=== PATIENT | male | born 1935 | race Caucasian/White ===

== ENCOUNTER 2017-07-18 20:26 | Observation (INO) | payer MEDICARE ==
[~2017-07-18] VITALS: Ht 172.7 cm; Wt 96.3 kg
[2017-07-18 23:04] LABS: BASOPHILS % 0.9 % (0.0-2.0); EOSINOPHILS % 11.9 % (0.0-5.0); HEMATOCRIT. 36.8 % (42.0-52.0); HEMOGLOBIN. 12.4 g/dL (14.0-18.0); LYMPHOCYTES % 30.4 % (20.0-50.0); MEAN CORPUSCULAR HEMOGLOBIN 30.9 pg (28.0-32.0); MEAN CORPUSCULAR VOLUME 91.7 fL (80.0-94.0); MEAN PLATELET VOLUME 9.7 fl (7.4-10.4); MONOCYTES % 9.5 % (2.0-8.0); NEUTROPHILS % 47.3 % (40.0-76.0); PLATELET 165 x1000/uL (130-400); RED BLOOD CELL COUNT 4.01 mill/uL (4.7-6.1); RED CELL DISTRIBUTION WIDTH 14.7 % (11.6-14.6)
[2017-07-18 23:08] LABS: CARBON DIOXIDE 21 mEq/L (21-32); CHLORIDE 111 mEq/L (98-107); PROTHROMBIN TIME 10.5 sec (9.4-11.6)
[2017-07-18] MEDS ORDERED: LORAZEPAM 2MG/ML CPJ IV ONE (23:15)
[2017-07-18 23:16] LABS: TROPONIN I 0.13 ng/mL (0.00-0.04)
[2017-07-19] MEDS ORDERED: ENOXAPARIN 100MG/ML SYR SUBCUT SCH ×2 (02:15→13:00)
[2017-07-19] MEDS ORDERED: ENOXAPARIN 30MG/0.3ML SYR SUBCUT SCH (02:24)
[2017-07-19] MEDS ORDERED: ACETAMINOPHEN 325MG TABLET PO PRN (03:00)
[2017-07-19] MEDS ORDERED: ASPIRIN 325MG EC TABLET PO SCH (03:00)
[2017-07-19 04:40] VITALS: BP 126/63
[2017-07-19 05:21] VITALS: BP 126/63
[2017-07-19] MEDS ORDERED: ATEN50TA PO (05:44)
[2017-07-19] MEDS ORDERED: SIMV80TA2 PO (05:56)
[2017-07-19] MEDS ORDERED: FINA5TAB11 PO (05:56)
[2017-07-19] MEDS ORDERED: OMEP20TA2 PO (05:56)
[2017-07-19] MEDS ORDERED: METF500T4 PO (05:56)
[2017-07-19] MEDS ORDERED: GEMF600T3 PO (05:56)
[2017-07-19] MEDS ORDERED: ALENDRONATE PO (05:56)
[2017-07-19] MEDS ORDERED: OMEG1CAP17 PO (05:56)
[2017-07-19] MEDS ORDERED: MVI PO (05:56)
[2017-07-19] MEDS ORDERED: OMEP20CA10 PO (05:56)
[2017-07-19] MEDS ORDERED: SODIUM CHLORIDE 0.9% INJ 3ML FLUSH IVF SCH (06:00)
[2017-07-19] MEDS ORDERED: CARVEDILOL 3.125 MG TABLET PO SCH (06:00)
[2017-07-19 06:49] LABS: HEMATOCRIT. 35.9 % (42.0-52.0); HEMOGLOBIN. 11.8 g/dL (14.0-18.0); MEAN CORPUSCULAR HEMOGLOBIN 30.4 pg (28.0-32.0); MEAN CORPUSCULAR VOLUME 92.3 fL (80.0-94.0); MEAN PLATELET VOLUME 9.5 fl (7.4-10.4); PLATELET 160 x1000/uL (130-400); RED BLOOD CELL COUNT 3.89 mill/uL (4.7-6.1); RED CELL DISTRIBUTION WIDTH 14.6 % (11.6-14.6)
[2017-07-19 07:16] LABS: CREATINE KINASE MB FRACTION 3.2 ng/mL (0.5-3.6); TROPONIN I 0.28 ng/mL (0.00-0.04)
[2017-07-19 08:39] VITALS: BP 124/79
[2017-07-19] MEDS ORDERED: FAMOTIDINE 20MG TABLET PO SCH (09:00)
[2017-07-19 12:30] VITALS: BP 143/77
[2017-07-19] MEDS ORDERED: PNEUMOCOCCAL 23-VAL P-SAC VAC 0.5 ML IM ONE (13:00)
[2017-07-19 13:24] LABS: PLATELET ESTIMATE NORMAL
[2017-07-19] MEDS ORDERED: ATORVASTATIN CALCIUM 40MG TABLET PO SCH (21:00)
== END 2017-07-19 14:35 | disposition short-term general hospital (02) ==
LOC: ER 21:14 → INTOOBSV 07-19 02:56 → 5WST 07-19 02:56 → EDBEDREQ 07-19 03:01 → ENRESERV 07-19 03:25
PROVIDERS: ADMIT Ophthalmology; ATTEND Ophthalmology
DX: I21.4 Non-ST elevation (NSTEMI) myocardial infarction (principal); I25.110 Atherosclerotic heart disease of native coronary artery with unstable angina pectoris; I25.2 Old myocardial infarction; I10 Essential (primary) hypertension; E78.5 Hyperlipidemia, unspecified; E11.9 Type 2 diabetes mellitus without complications; N40.0 Benign prostatic hyperplasia without lower urinary tract symptoms; M81.0 Age-related osteoporosis without current pathological fracture; R79.89 Other specified abnormal findings of blood chemistry; J90 Pleural effusion, not elsewhere classified; Z87.891 Personal history of nicotine dependence; Z79.84 Long term (current) use of oral hypoglycemic drugs; Z86.718 Personal history of other venous thrombosis and embolism
CPT/HCPCS: 36415; 71010; 80048; 80053; 80061; 82553; 82962; 83880; 84443; 84484; 85025; 85379; 85610; 93005; 93306; 96372; 96374; 99291; G0378; J1650; J2060; 90732